=== PATIENT | male | born 1965 | race Hispanic/Latino ===

== ENCOUNTER 2018-07-29 17:57 | Emergency (ER) | payer SELFPAY ==
[2018-07-29] MEDS ORDERED: LIDOCAINE 1% 10 ML VIAL INJ ONE (18:04)
--- NOTE | 2018-07-29 18:13 | ED.PDOC ---
History of Present Illness - General Chief Complaint: Upper Extremity Injury Stated Complaint: left shoulder injury Time Seen by Provider: 07/29/18 18:09 Source: patient, RN notes reviewed, Vital Signs reviewed Additional Information: 52 YEAR OLD MALE FELL OFF A LADDER 3 FOOT OFF THE GROUND AND SUSTAINED INJURY TO THE LEFT SHOULDER HE DENIES ERIC OTHER INJURY NO LOC NO NECK PAIN NO CHEST OR ABDOMINAL PAIN NO TROUBLE BREATING PE IN MODERATE DISTRESS LEFT SHOULDER CONTOUR IS SAGGING NO NEUROVASCULAR DEFICIT NOTED - History of Present Illness Occurred: just prior to arrival Pain - Upper Extremity: moderate: Shoulder, left Method of Injury: fell Improving Factors: nothing Worsening Factors: movement Allergies/Adverse Reactions: Allergies NO KNOWN ALLERGY Allergy (Verified 07/29/18 18:01) Home Medications: Ambulatory Orders Acetamin W/Cod #3 Tab [Tylenol w/CODEINE #3] 1 ea PO Q6HR PRN #40 tab 07/29/18 Review of Systems - Review of Systems Constitutional: States: no symptoms reported EENTM: States: no symptoms reported Respiratory: States: no symptoms reported Cardiology: States: no symptoms reported Gastrointestinal/Abdominal: States: no symptoms reported Genitourinary: States: no symptoms reported Skin: States: no symptoms reported Neurological: States: no symptoms reported Endocrine: States: no symptoms reported Physical Exam - Physical Exam General Appearance: Alert, Obvious distress Eyes, Ears, Nose, Throat Exam: PERRL/EOMI, normal ENT inspection, TMs normal, pharynx normal Neck: non-tender, full range of motion, supple, normal inspection Cardiovascular/Respiratory: regular rate, rhythm, no M/R/G, normal peripheral pulses, no JVD Abdominal Exam: non-tender, no organomegaly Back Exam: normal inspection, no CVA tenderness Shoulder Exam: asymmetry, limited ROM Elbow/Forearm Exam: normal inspection, non-tender, no evidence of injury Wrist Exam: normal inspection, non-tender, no evidence of injury Hand Exam: normal inspection, non-tender, no evidence of injury Neuro/Tendon: normal sensation Mental Status: alert, oriented x 3 Progress - Results/Orders Results/Orders: 6.45 PT AWAKE ALERT VS STABLE MAY BE DISCHARGED NO DRIVING TODAY - EKG/XRAY/CT Xray Comments: anterior dislocation left shoulder Procedures - Joint Reduction left shoulder Reduction Attempts: 1 Pre-Procedure NV Exam: Yes Post Joint Reduction Film: joint reduced Progress: PATIENT WAS GIVEN FENTANYL 100 MICRO GMS AND VERSED 5 MG IV LEFT SHOULDER WAS REDUCED WITHOUT ANY DIFFICULTY PATIENT TOLERATED THE PROCEDURE WELL POST REDUCTION X RAY SATISFACTORY REDUCTION NOTED NO FRACTURE SEEN PT WAS PLACED ON SLING AND AMARA ADVISED TO LEAVE THE SHOUDLER IN THE SLING FOR 6 WEEKS FOLLOW UP WITH ORTHOPEDICS NEXT WEEK Departure - Departure Clinical Impression: Dislocation, shoulder, anterior Time of Disposition: 18:38 Disposition: Discharge to Home or Self Care Condition: Good Departure Forms: ED Discharge - Pt. Copy, Patient Portal Self Enrollment Diet: resume usual diet Home Medications: Ambulatory Orders Acetamin W/Cod #3 Tab [Tylenol w/CODEINE #3] 1 ea PO Q6HR PRN #40 tab 07/29/18
[2018-07-29 18:14] VITALS: TEMP 98.2
[2018-07-29] MEDS ORDERED: MIDAZOLAM INJ 5 MG/5 ML VIAL ONE (18:14)
[2018-07-29] MEDS ORDERED: fentaNYL CITRATE INJ 50 MCG/ML AMP ONE (18:15)
[2018-07-29] MEDS ORDERED: fentaNYL CITRATE INJ 50 MCG/ML AMP IV ONE (18:19)
[2018-07-29] MEDS ORDERED: MIDAZOLAM INJ 5 MG/5 ML VIAL IV ONE (18:19)
--- NOTE | 2018-07-29 18:34 | RAD ---
EXAM DESCRIPTION: Shoulder,Left 2 or More Views CLINICAL HISTORY: 52 years Male shoulder pain COMPARISON: None. TECHNIQUE: LEFT SHOULDER two view FINDINGS: There is inferior and medial displacement of the humerus with respect to the glenoid consistent with anterior dislocation. There appears to be some irregularity involving the superolateral margin of the humeral head suggesting Hill-Sachs deformity which may be acute or chronic in nature. Degenerative changes at the AC joint. Acromioclavicular joint appears maintained. IMPRESSION: Anterior shoulder dislocation with irregularity that may reflect Hill-Sachs deformity either acute or chronic in nature Electronically signed by: Sammi Mclean MD 07/29/2018 6:33 PM CDT
--- NOTE | 2018-07-29 18:49 | RAD ---
EXAM DESCRIPTION: Shoulder,Left 2 or More Views CLINICAL HISTORY: 52 years Male, post reduction COMPARISON: Radiographs from earlier same day FINDINGS: Single view of the left shoulder Interval glenohumeral reduction, now in anatomic alignment. Previously seen Hill-Sachs deformity of the humeral head is not visualized in this view. Electronically signed by: Trace Seay MD 07/29/2018 6:48 PM CDT
--- NOTE | 2018-07-29 19:18 | RAD ---
EXAM DESCRIPTION: Hand,Right 3 Views CLINICAL HISTORY: 52 years Male ,pain COMPARISON: None. TECHNIQUE: Three views of the right hand. FINDINGS: No acute fractures or dislocations are identified. No osseous destructive lesions. Mild degenerative changes. Small radiopaque foreign body adjacent to the ulnar aspect of the fifth digit middle phalanx head. Minimal radiopaque density in the soft tissues along the radial aspect of the proximal second phalanx. These may be chronic. Clinical correlation recommended. IMPRESSION: No acute fracture is identified. Small radiopaque foreign bodies which may be chronic. Clinical correlation recommended. Electronically signed by: Gagandeep Mclean MD 07/29/2018 7:17 PM CDT
[2018-07-29 19:35] VITALS: BP 123/93; O2SAT 96
== END 2018-07-29 19:20 | disposition home or self-care (01) ==
LOC: ER 17:57
DX: S43.015A Anterior dislocation of left humerus, initial encounter (principal); W11.XXXA Fall on and from ladder, initial encounter; Y92.9 Unspecified place or not applicable
CPT/HCPCS: 73030; 73130; J2250; J3010

== ENCOUNTER 2018-12-09 19:46 | Emergency (ER) | payer SELFPAY ==
[2018-12-09 20:06] VITALS: TEMP 98.1; O2SAT 98
--- NOTE | 2018-12-09 20:09 | ED.PDOC ---
History of Present Illness - General Chief Complaint: Upper Extremity Injury Stated Complaint: left shoulder dislocation Time Seen by Provider: 12/09/18 20:02 Source: patient Exam Limitations: no limitations - History of Present Illness Initial Comments: Yogi Doyle 53 y/o male stated that while going down his horse his boots got stuck on the saddle step and fell on his left arm with sharp pain on moving left shoulder after wards.Denies injuries else where. Occurred: this afternoon, other - 2 hours ago Pain - Upper Extremity: moderate: Shoulder, left Method of Injury: fell - off his horse Improving Factors: nothing, rest Worsening Factors: movement Associated Symptoms: pain Allergies/Adverse Reactions: Allergies NO KNOWN ALLERGY Allergy (Verified 07/29/18 18:01) Home Medications: Ambulatory Orders Acetamin W/Cod #3 Tab [Tylenol w/CODEINE #3] 1 ea PO Q6HR PRN #40 tab 07/29/18 Review of Systems - Review of Systems Constitutional: States: no symptoms reported EENTM: States: no symptoms reported Respiratory: States: no symptoms reported Musculoskeletal: States: see HPI All other Systems: Reviewed and Negative, No Change from Baseline Past Medical History (General) - Patient Medical History Hx Stroke: No Hx Asthma: No Hx Cardiac Disorders: No Hx Diabetes: Yes Surgical History: no surgical history - Social History Hx Tobacco Use: Yes Hx Alcohol Use: No Hx Substance Use: No Hx Physical Abuse: No Hx Emotional Abuse: No Family Medical History - Family History Mother Family History: Unknown Physical Exam - Physical Exam General Appearance: Alert, Anxious, No apparent distress Eyes, Ears, Nose, Throat Exam: normal ENT inspection Neck: non-tender, full range of motion, supple Cardiovascular/Respiratory: regular rate, rhythm, no M/R/G, normal peripheral pulses, no JVD Abdominal Exam: non-tender Back Exam: no CVA tenderness, no vertebral tenderness Shoulder Exam: asymmetry, deformity - loss of deltoid muscle fullness left shoulder, limited ROM - left shoulder, pain, soft tissue tenderness Elbow/Forearm Exam: normal inspection, non-tender, no evidence of injury, normal ROM Wrist Exam: normal inspection, non-tender, normal ROM Hand Exam: normal inspection, non-tender, no evidence of injury, normal ROM Neuro/Tendon: normal sensation, normal motor functions, normal tendon functions, no evidence tendon injury Mental Status: alert, oriented x 3 Skin Exam: normal color, warm/dry Progress - Progress Progress: 12/09/18 21:30 Vital Signs - 8 hr 12/09/18 19:59 Temperature 98.1 F Pulse Rate [ 61 left] Respiratory 18 Rate Blood Pressure 167/105 [left] O2 Sat by Pulse 98 Oximetry - EKG/XRAY/CT XRAY: left shoulder-dislocation Procedures - Joint Reduction shoulder Conscious Sedation: Yes - Propofol-150 mg Reduction Attempts: 1 - left shoulder dislocation Pre-Procedure NV Exam: Yes Post Joint Reduction Film: consent signed Departure - Departure Clinical Impression: Fall from horse Qualifiers: Encounter type: initial encounter Qualified Code(s): V80.010A - Animal-rider injured by fall from or being thrown from horse in noncollision accident, initial encounter Left shoulder pain Qualifiers: Chronicity: acute Qualified Code(s): M25.512 - Pain in left shoulder Dislocation of left shoulder joint Qualifiers: Encounter type: initial encounter Qualified Code(s): S43.005A - Unspecified dislocation of left shoulder joint, initial encounter Time of Disposition: 21:50 Disposition: Discharge to Home or Self Care Condition: Fair Departure Forms: ED Discharge - Pt. Copy, Patient Portal Self Enrollment Instructions: Shoulder Dislocation (DC), Shoulder Dislocation Home Medications: Ambulatory Orders Acetamin W/Cod #3 Tab [Tylenol w/CODEINE #3] 1 ea PO Q6HR PRN #40 tab 07/29/18 Additional Instructions: No horseback riding for 5 days;Arm sling for 5 days;Follow up with primary 13 Dec 2018 for recheck
[2018-12-09] MEDS ORDERED: fentaNYL CITRATE INJ 50 MCG/ML AMP IV ONE (20:34)
--- NOTE | 2018-12-09 20:36 | RAD ---
EXAM DESCRIPTION: Shoulder,Left 2 or More Views CLINICAL HISTORY: left shoulder pain COMPARISON: None FINDINGS: 2 view(s) submitted. There is inferior dislocation of the left humerus head. No definite fracture. However there is irregularity of the glenoid and of the acromion that could either be degenerative or could be fracture. Attention is recommended at follow-up. IMPRESSION: Left shoulder dislocation. Electronically signed by: David Silva 12/09/2018 8:33 PM [facility]
[2018-12-09] MEDS ORDERED: PROPOFOL 200 MG/20 ML VIAL IV ONE ×2 (21:07→21:11)
[2018-12-09] MEDS ORDERED: SODIUM CHLORIDE 0.9% 1000ML 1,000 ML ONE (21:07)
[2018-12-09] MEDS ORDERED: SODIUM CHLORIDE 0.9% 1000ML 1,000 ML IVS ONE (21:11)
--- NOTE | 2018-12-09 21:39 | RAD ---
EXAM DESCRIPTION: Shoulder,Left 1 View CLINICAL HISTORY: verification of shoulder realighnment COMPARISON: 12/09/2018 2004 hours FINDINGS: One view(s) submitted. No fracture or dislocation is identified. Bone marrow attenuation is unremarkable. No radiopaque foreign body is identified. IMPRESSION: Successful relocation. No definite fracture. Electronically signed by: David Silva 12/09/2018 9:35 PM [facility]
[2018-12-09] MEDS ORDERED: ACETAMINOPHEN W/COD #3 TAB (ER Disp) PO ONE (21:51)
[2018-12-09 22:21] VITALS: BP 140/115
== END 2018-12-09 21:15 | disposition home or self-care (01) ==
LOC: ER 19:46
DX: S43.005A Unspecified dislocation of left shoulder joint, initial encounter (principal); E11.9 Type 2 diabetes mellitus without complications; V80.010A Animal-rider injured by fall from or being thrown from horse in noncollision accident, initial encounter; Y93.51 Activity, roller skating (inline) and skateboarding; Z87.891 Personal history of nicotine dependence; Y92.9 Unspecified place or not applicable
CPT/HCPCS: 73020; 73030; 94770; J3010; J3490; J7030

== ENCOUNTER 2019-07-24 19:12 | Emergency (ER) | payer SELFPAY ==
[2019-07-24] MEDS ORDERED: ONDANSETRON INJ 4 MG/2 ML VIAL IV ONE (20:07)
[2019-07-24] MEDS: HYDROmorphone HCL INJ 2 MG/ML VIAL IV ONE ×2 (20:15→20:16)
--- NOTE | 2019-07-24 20:52 | RAD ---
EXAM DESCRIPTION: Shoulder,Left 2 or More Views CLINICAL HISTORY: 53 years Male, trauma COMPARISON: December 09, 2018 FINDINGS: Left shoulder 2 views Anteroinferior dislocation of the humeral head relative to the glenoid. No discrete fracture seen. Impression: Glenohumeral dislocation. Electronically signed by: Trace Seay MD 07/24/2019 8:51 PM CDT
[2019-07-24] MEDS ORDERED: HYDROmorphone HCL INJ 2 MG/ML VIAL IV ONE (21:01)
[2019-07-24] MEDS ORDERED: PROPOFOL 200 MG/20 ML VIAL IV ONE ×2 (21:17→23:25)
[2019-07-24] MEDS ORDERED: SODIUM CHLORIDE 0.9% 1000ML 1,000 ML ONE (21:22)
[2019-07-24] MEDS ORDERED: MORPHINE SULFATE INJ 10 MG/ML VIAL ONE (21:49)
--- NOTE | 2019-07-24 23:10 | ED.PDOC ---
History of Present Illness - General Chief Complaint: Upper Extremity Injury Stated Complaint: dislocated left shoulder Time Seen by Provider: 07/24/19 20:06 Source: patient Additional Information: Yogi Doyle is a 53-year-old male who presents to the ED with chief complaint of left shoulder injury. Patient was lifting a heavy object with a friend and the object slipped and patient fell to the ground and landed on his left shoulder. patient has no injuries other than left shoulder pain. He indicates that he has dislocated that shoulder twice before. patient specifically denies head injury and neck pain. There are no other complaints. - History of Present Illness Allergies/Adverse Reactions: Allergies NO KNOWN ALLERGY Allergy (Verified 07/29/18 18:01) Home Medications: Ambulatory Orders Acetamin W/Cod #3 Tab [Tylenol w/CODEINE #3] 1 ea PO Q6HR PRN #40 tab 07/29/18 Acetaminophen W/ Codeine [Tylenol W/ CODEINE #3] 1 ea PO Q6H PRN #20 07/25/19 Review of Systems - Review of Systems Constitutional: States: no symptoms reported EENTM: States: no symptoms reported Respiratory: States: no symptoms reported. Denies: cough, short of breath Cardiology: States: no symptoms reported. Denies: chest pain, palpitations Gastrointestinal/Abdominal: States: no symptoms reported. Denies: abdominal pain Musculoskeletal: States: see HPI. Denies: back pain, neck pain Neurological: States: no symptoms reported All other Systems: Reviewed and Negative Past Medical History (General) - Patient Medical History Hx Seizures: No Hx Stroke: No Hx Dementia: No Hx Asthma: No Hx of COPD: No Hx Cardiac Disorders: No Hx Congestive Heart Failure: No Hx Pacemaker: No Hx Hypertension: No Hx Thyroid Disease: No Hx Diabetes: No Hx Gastroesophageal Reflux: No Hx Renal Disease: No Hx Cancer: No Hx of HIV: No Hx MRSA: No - Vaccination History Hx Tetanus, Diphtheria Vaccination: No Hx Influenza Vaccination: No Hx Pneumococcal Vaccination: No - Social History Hx Tobacco Use: Yes Hx Alcohol Use: Yes Hx Substance Use: No Hx Depression: No Hx Physical Abuse: No Hx Emotional Abuse: No - Triage Comment ED Triage Comment: Patient was moving couch and dislocated his left shoulder. Patient has history of left shoulder dislocating Family Medical History - Family History Mother Family History: Unknown Physical Exam - Physical Exam General Appearance: Alert, Anxious, Obvious distress, Well Developed, Well Nourished Head Injury: no evidence of injury Eye Exam: bilateral normal ENT Exam: no evidence of ENT injury Neck Exam: non-tender, full range of motion, normal inspection Cardiovascular/Respiratory: regular rate, rhythm, no M/R/G Gastrointestinal/Abdominal: normal bowel sounds, non tender, soft Back Exam: normal inspection, no vertebral tenderness Extremity Exam: other - left shoulder held in abduction. Patient efuses to permit range of motion. 2+ radial pulse. Normal sensation distally and over the lateral deltoid. Remainder of the arm is nontender. Neurologic: no motor/sensory deficits, alert Progress - Progress Progress: Differential diagnosis: Fracture, sprain, contusion, dislocation. 07/24/19 23:12 Approximately one hour ago procedural sedation attempted to reduce patient's shoulder. Patient received propofol and morphine and right after administration another patient in the ED was found to have a head bleed and needed emergent management. Sedation was aborted and patient was watched and he woke up shortly after. Will resume procedural sedation at earliest available opportunity. 07/25/19 00:30 EXAM DESCRIPTION: Shoulder,Left 1 View CLINICAL HISTORY: 53 years Male S/P patrice nelson reduction COMPARISON: 07/24/2019 8:17 PM. TECHNIQUE: LEFT SHOULDER single view FINDINGS: Interval relocation of the humeral head with respect to the glenoid. There is narrowing of the acromiohumeral joint space consistent with shoulder impingement. Deformity of the lateral margin of the head of the humerus which appears similar to the previous study suggesting a chronic health sacs lesion. Acromioclavicular joint appears maintained. IMPRESSION: Interval relocation of the shoulder. Suspect chronic Hill-Sachs deformity Shoulder impingement Electronically signed by: Sammi Mclean MD 07/25/2019 12:14 AM Patient is now fully awake alert and oriented. Successful reduction on second attempt. Patient is placed in a shoulder immobilizer and I will refer her to orthopedics for outpatient reevaluation. Vital signs stable, patient NAD and looks clinically well and is safe for discharge with outpatient follow-up. Follow-up instructions, discharge instructions and return to ED precautions discussed with patient, Patient voices understanding and willingness to comply with instructions. All laboratory and radiographic results have been discussed with the patient, and all questions answered.. Patient happy with plan. Procedures - Joint Reduction left shoulder Conscious Sedation: Yes Reduction Attempts: 2 Pre-Procedure NV Exam: Yes Post Joint Reduction Film: no fracture seen Departure - Departure Clinical Impression: Dislocation, shoulder, anterior Qualifiers: Encounter type: initial encounter Time of Disposition: 00:32 Disposition: Discharge to Home or Self Care Condition: Good Departure Forms: ED Discharge - Pt. Copy, Patient Portal Self Enrollment Instructions: DI for Arm Pain, Shoulder Dislocation Activity: no pushing/pulling with affected limb Referrals: Ruddy Harden MD [Active Staff] - 1 Week Prescriptions: Acetaminophen W/ Codeine [Tylenol W/ CODEINE #3] 1 ea PO Q6H PRN #20 PRN Reason: Pain Home Medications: Ambulatory Orders Acetamin W/Cod #3 Tab [Tylenol w/CODEINE #3] 1 ea PO Q6HR PRN #40 tab 07/29/18 Acetaminophen W/ Codeine [Tylenol W/ CODEINE #3] 1 ea PO Q6H PRN #20 07/25/19
[2019-07-24] MEDS ORDERED: KETAMINE HCL 100 MG/ML VIAL ONE (23:55)
--- NOTE | 2019-07-25 00:16 | RAD ---
EXAM DESCRIPTION: Shoulder,Left 1 View CLINICAL HISTORY: 53 years Male S/P shoulder reduction COMPARISON: 07/24/2019 8:17 PM. TECHNIQUE: LEFT SHOULDER single view FINDINGS: Interval relocation of the humeral head with respect to the glenoid. There is narrowing of the acromiohumeral joint space consistent with shoulder impingement. Deformity of the lateral margin of the head of the humerus which appears similar to the previous study suggesting a chronic health sacs lesion. Acromioclavicular joint appears maintained. IMPRESSION: Interval relocation of the shoulder. Suspect chronic Hill-Sachs deformity Shoulder impingement Electronically signed by: Sammi Mclean MD 07/25/2019 12:14 AM CDT
[2019-07-25 00:51] VITALS: BP 165/102; TEMP 98.9; O2SAT 96
== END 2019-07-25 01:01 | disposition home or self-care (01) ==
LOC: ER 19:12
DX: M24.412 Recurrent dislocation, left shoulder (principal); Z87.891 Personal history of nicotine dependence
CPT/HCPCS: 73020; 73030; J1170; J2270; J2405; J3490; J7030

== ENCOUNTER 2019-12-12 14:44 | Emergency (ER) | payer SELFPAY ==
[2019-12-12] MEDS: HYDROmorphone HCL INJ 2 MG/ML VIAL IV ONE (14:59)
[2019-12-12] MEDS: ONDANSETRON ODT 8 MG TAB SL ONE (15:01)
[2019-12-12] MEDS ORDERED: ETOMIDATE INJECTION 2 MG/ML 20ML VIAL IV ONE (15:06)
[2019-12-12] MEDS: ETOMIDATE INJECTION 2 MG/ML 20ML VIAL IV ONE (15:20)
--- NOTE | 2019-12-12 15:20 | RAD ---
EXAM DESCRIPTION: Shoulder,Left 2 or More Views CLINICAL HISTORY: 54 years Male, suspected recurrent shoulder dislocation COMPARISON: 07/25/2019 Findings: 3 views/radiographs Recurrent anterior/inferior glenohumeral dislocation. Moderate acromioclavicular osteoarthritis. No acute fracture identified. Visualized chest is clear. IMPRESSION: Glenohumeral dislocation. Electronically signed by: Devang Rose MD 12/12/2019 3:18 PM [facility]
--- NOTE | 2019-12-12 15:34 | RAD ---
EXAM DESCRIPTION: Shoulder,Left 2 or More Views CLINICAL HISTORY: 54 years Male, post reduction COMPARISON: Left shoulder series obtained earlier same day FINDINGS: Near anatomic postreduction alignment of the left glenohumeral joint without fracture or other complication. Mild degenerative changes in the left AC joint without significant undersurface spurring. IMPRESSION: Near anatomic postreduction alignment of the left glenohumeral joint without apparent complication. Electronically signed by: Mario Clancy MD 12/12/2019 3:33 PM [facility]
--- NOTE | 2019-12-12 15:42 | ED.PDOC ---
History of Present Illness - General Chief Complaint: Upper Extremity Injury Stated Complaint: dislocated shoulder Time Seen by Provider: 12/12/19 14:50 Source: patient Exam Limitations: no limitations - History of Present Illness Initial Comments: The patient is a 54-year-old male presented emergency room secondary to a with shoulder dislocation. He reached up to do something and it slipped out. He reports this is better with time. He is neurovascularly intact. It occurred about 30 minutes prior to arrival. He has not had anything to eat today. His last oral intake was a couple of beers found that he was wanting for 1/2 hours ago. No fever. No injury. No laceration. Deformity is palpable. Timing/Duration: momentarily, 1/2 hour Severity: moderate Improving Factors: immobilization Worsening Factors: movement Associated Symptoms: denies symptoms Allergies/Adverse Reactions: Allergies NO KNOWN ALLERGY Allergy (Verified 07/29/18 18:01) Home Medications: Ambulatory Orders NK 12/12/19 Review of Systems - Review of Systems Constitutional: States: no symptoms reported EENTM: States: no symptoms reported Respiratory: States: no symptoms reported Cardiology: States: no symptoms reported Gastrointestinal/Abdominal: States: no symptoms reported Genitourinary: States: no symptoms reported Musculoskeletal: States: see HPI Skin: States: no symptoms reported Neurological: States: no symptoms reported Endocrine: States: no symptoms reported All other Systems: No Change from Baseline Past Medical History (General) - Patient Medical History Hx Seizures: No Hx Stroke: No Hx Dementia: No Hx Asthma: No Hx of COPD: No Hx Cardiac Disorders: No Hx Congestive Heart Failure: No Hx Pacemaker: No Hx Hypertension: No Hx Thyroid Disease: No Hx Diabetes: No Hx Gastroesophageal Reflux: No Hx Renal Disease: No Hx Cancer: No Hx of HIV: No Hx MRSA: No - Vaccination History Hx Tetanus, Diphtheria Vaccination: No Hx Influenza Vaccination: No Hx Pneumococcal Vaccination: No - Social History Hx Tobacco Use: Yes Hx Alcohol Use: Yes Hx Substance Use: No Hx Depression: No Hx Physical Abuse: No Hx Emotional Abuse: No Family Medical History - Family History Mother Family History: Unknown Physical Exam - Physical Exam General Appearance: Alert, No apparent distress Eye Exam: bilateral normal Ears, Nose, Throat: hearing grossly normal, normal pharynx Neck: full range of motion, supple Respiratory: lungs clear, normal breath sounds, no respiratory distress, no accessory muscle use Cardiovascular/Chest: normal peripheral pulses, no edema, other - Regular rate Peripheral Pulses: radial,right: 2+, radial,left: 2+ Gastrointestinal/Abdominal: non tender, soft Rectal Exam: deferred Back Exam: no CVA tenderness, no vertebral tenderness Extremity: no pedal edema, normal capillary refill, other - See history of present illness 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 The shoulder was reduced without difficulty under moderate sedation. Postreduction films confirmed. The patient can use Motrin as needed. He has been placed in a sling. He should keep follow-up with orthopedics. Keep routine follow-up with primary care doctor otherwise. ER warnings are given. Procedure note: Moderate sedation: Risks and benefits were explained and patient agreed to proceed. Respiratory and nursing were present for monitoring. Pulse oximetry, end-tidal CO2's and blood pressures were monitored throughout. The patient received 12 mg of etomidate as moderate sedation. Reduction was done without difficulty. Postreduction films confirmed placement. He is neurovascularly intact after. shayla [email or web address] [id number] - Results/Orders Results/Orders: Initial x-ray shows inferior anterior dislocation of the left shoulder. Postreduction film shows near anatomic alignment. No evidence of any fracture. 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 Departure - Departure Clinical Impression: Recurrent shoulder dislocation Qualifiers: Laterality: left Qualified Code(s): M24.412 - Recurrent dislocation, left shoulder Disposition: Discharge to Home or Self Care Condition: Fair Departure Forms: ED Discharge - Pt. Copy, Patient Portal Self Enrollment Instructions: Shoulder Dislocation (DC) Diet: regular diet Activity: no pushing/pulling with affected limb Home Medications: Ambulatory Orders NK 12/12/19 Additional Instructions: The patient is a 54-year-old male presenting secondary to a recurrent left shoulder dislocation. The shoulder was reduced without difficulty under moderate sedation. Postreduction films confirmed. The patient can use Motrin as needed. He has been placed in a sling. He should keep follow-up with orthopedics. Keep routine follow-up with primary care doctor otherwise. ER warnings are given.
[2019-12-12 15:43] VITALS: TEMP 97.8
[2019-12-12 16:22] VITALS: BP 156/87; O2SAT 93
== END 2019-12-12 16:09 | disposition home or self-care (01) ==
LOC: ER 14:44
DX: M24.412 Recurrent dislocation, left shoulder (principal); F17.200 Nicotine dependence, unspecified, uncomplicated; X50.9XXA Other and unspecified overexertion or strenuous movements or postures, initial encounter; Y92.9 Unspecified place or not applicable
CPT/HCPCS: 73030; 94770; J1170

== ENCOUNTER 2020-01-07 07:56 | Emergency (ER) | payer SELFPAY ==
[2020-01-07] MEDS ORDERED: PROPOFOL 200 MG/20 ML VIAL IV ONE (07:57)
[2020-01-07] MEDS ORDERED: LIDOCAINE 1% 10 ML VIAL INJ ONE (07:57)
[2020-01-07] MEDS ORDERED: SODIUM CHLORIDE 0.9% (FLUSH) 10 ML SYG IV PRN (08:10)
[2020-01-07] MEDS ORDERED: HYDROmorphone HCL INJ 2 MG/ML VIAL IV ONE ×4 (08:10→11:07)
[2020-01-07] MEDS ORDERED: SODIUM CHLORIDE 0.9% 1000ML 1,000 ML IVS ONE (08:10)
--- NOTE | 2020-01-07 08:14 | ED.PDOC ---
History of Present Illness - General Time Seen by Provider: 01/07/20 08:09 Source: patient - History of Present Illness Initial Comments: 54 yo male with PMH of HTN, DM2 who presents with cc of Left shoulder pain. 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 Reports also deformity and tingling sensations down the left arm and into the left hand. 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 Pt reports hx of L shoulder dislocation x4 in the past. Last was on 12/12/2019 - seen here in the ED and reduced by Dr. Freeman. Allergies/Adverse Reactions: Allergies NO KNOWN ALLERGY Allergy (Verified 01/07/20 08:20) Home Medications: Ambulatory Orders Acetaminophen W/ Codeine [Tylenol W/ CODEINE #3] 1 ea PO Q6H PRN 5 Days #10 01/07/20 Acetaminophen W/ Codeine [Tylenol W/ CODEINE #3] 1 ea PO Q6H PRN 5 Days #10 01/07/20 Review of Systems - Review of Systems Review of Systems: 01/07/20 08:14 as per HPI All other Systems: Reviewed and Negative Past Medical History (General) - Patient Medical History Hx Seizures: No Hx Stroke: No Hx Dementia: No Hx Asthma: No Hx of COPD: No Hx Cardiac Disorders: No Hx Congestive Heart Failure: No Hx Pacemaker: No Hx Hypertension: No Hx Thyroid Disease: No Hx Diabetes: No Hx Gastroesophageal Reflux: No Hx Renal Disease: No Hx Cancer: No Hx of HIV: No Hx MRSA: No - Vaccination History Hx Tetanus, Diphtheria Vaccination: No Hx Influenza Vaccination: No Hx Pneumococcal Vaccination: No - Social History Hx Tobacco Use: Yes Hx Alcohol Use: Yes Hx Substance Use: No Hx Depression: No Hx Physical Abuse: No Hx Emotional Abuse: No Family Medical History - Family History Mother Family History: Unknown Physical Exam - Physical Exam General Appearance: Alert, Anxious, No apparent distress Eyes, Ears, Nose, Throat Exam: PERRL/EOMI, normal ENT inspection Neck: non-tender, full range of motion, supple, normal inspection Cardiovascular/Respiratory: regular rate, rhythm, no M/R/G, normal peripheral pulses, no JVD, normal breath sounds, no respiratory distress Abdominal Exam: non-tender, no organomegaly Back Exam: normal inspection, no CVA tenderness, no vertebral tenderness Shoulder Exam: bone tenderness - throughout left shoulder, moderate, guarding, deformity - noted to left shoulder region, appears dislocated, limited ROM - markedly limited to Left shoulder region all directions due to pain Elbow/Forearm Exam: normal inspection, non-tender, no evidence of injury, normal ROM Wrist Exam: normal inspection, non-tender, no evidence of injury, normal ROM Hand Exam: normal inspection, non-tender, no evidence of injury, normal ROM Neuro/Tendon: normal motor functions Mental Status: alert, oriented x 3 Skin Exam: normal color, warm/dry Progress - Progress Progress: 01/07/20 08:16 Acute Left shoulder pain -suspect anterior dislocation. Consider also posterior dislocation, fracture, strain/sprain, rotator cuff injury, other -stat L shoulder XR, place PIV, Dilaudid 1 mg IV 01/07/20 11:08 -Initially attempted shoulder reduction with IV moderate sedation with Versed (total 7 mg) and Dilaudid (total 3 mg). Attempted traction + external rotation + abduction method and then traction-countertraction method with bedsheets without success. -Was just able to contact Dr. Harden (ortho) who is unable to get to the ED currently. He is recommending heavy sedation with propofol and attempting reduction with traction + abduction + internal rotation under heavy sedation with propofol. -TRANSFORMATION COACH (Stephan) consulted who is coming in to assist with heavy sedation in ED for shoulder reduction. 01/07/20 12:04 -Was able to easily reduce the shoulder under deep sedation and TRANSFORMATION COACH assistance - reduced easily with traction, abduction, slight interal rotation. Post- reduction films confirmed good reduction. Placed in sling and will need close outpatient f/u with ortho in next 1-2 weeks. -dc home in good condition, return warnings discussed. Vargas Barton MD Billing #[id number] Procedures - Joint Reduction left shoulder Conscious Sedation: Yes - On 2nd attempt, deep sedation with propofol used in presence of TRANSFORMATION COACH. Reduction Attempts: 2 Pre-Procedure NV Exam: Yes Post Joint Reduction Film: joint reduced - On 2nd attempt with deep sedation and TRANSFORMATION COACH. Reduced easily with traction, abduction, interal rotation. Sling applied immediately Departure - Departure Clinical Impression: Dislocation of left shoulder joint Time of Disposition: 11:58 Disposition: Discharge to Home or Self Care Condition: Fair Instructions: Shoulder Dislocation (DC) Diet: resume usual diet Activity: other - Left arm to remain in shoulder sling until cleared by ortho Referrals: Ruddy Harden MD [Active Staff] - 1-2 Weeks Prescriptions: Acetaminophen W/ Codeine [Tylenol W/ CODEINE #3] 1 ea PO Q6H PRN 5 Days #10 PRN Reason: Pain Acetaminophen W/ Codeine [Tylenol W/ CODEINE #3] 1 ea PO Q6H PRN 5 Days #10 PRN Reason: Pain Home Medications: Ambulatory Orders Acetaminophen W/ Codeine [Tylenol W/ CODEINE #3] 1 ea PO Q6H PRN 5 Days #10 01/07/20 Acetaminophen W/ Codeine [Tylenol W/ CODEINE #3] 1 ea PO Q6H PRN 5 Days #10 01/07/20 Additional Instructions: Continue taking ibuprofen 600 mg every 6 hours and Tylenol 650 mg every 6 hours as needed for pain. Keep the Left arm sling on and do not use the left arm until cleared by ortho. Follow up with the orthopedic surgery clinic (Dr. Harden) in next 1-2 weeks. Return if the shoulder becomes dislocated again or any other issues. I strongly advise you quit smoking as this will greatly affect your chances of a successful shoulder surgery if this is recommended by Dr. Harden.
[2020-01-07 08:22] VITALS: TEMP 97.3
[2020-01-07] MEDS ORDERED: MIDAZOLAM INJ 5 MG/5 ML VIAL ONE (08:51)
[2020-01-07] MEDS ORDERED: MIDAZOLAM INJ 5 MG/5 ML VIAL IV ONE ×2 (08:57→09:14)
--- NOTE | 2020-01-07 08:59 | RAD ---
EXAM DESCRIPTION: Shoulder,Left 2 or More Views CLINICAL HISTORY: 54 years Male acute left shoulder pain, suspected dislocation COMPARISON: Left shoulder dated 12/12/2019 TECHNIQUE: AP views in internal and external rotation of the left shoulder are obtained. FINDINGS: OSSEOUS: There is anteroinferior complete dislocation of the left humeral head relative to the glenoid with suspected Hill-Sachs deformity. The joint spaces are preserved. There is exuberant subacromial enthesopathy. There is no evidence of marginal erosive changes to suggest an inflammatory arthritis. SOFT TISSUE: There is no significant soft tissue swelling or mass. No evidence of significant soft tissue calcifications. No radiopaque foreign bodies. IMPRESSION: Anteroinferior dislocation of the left humeral head relative to the glenoid with Hill-Sachs deformity. Remainder of findings as described above. Electronically signed by: Pattie Lennon MD 01/07/2020 8:57 AM CDT
[2020-01-07] MEDS ORDERED: fentaNYL CITRATE INJ 50 MCG/ML 2 ML AMP ONE (09:31)
[2020-01-07] MEDS ORDERED: fentaNYL CITRATE INJ 50 MCG/ML 2 ML AMP IV ONE (09:49)
[2020-01-07] MEDS ORDERED: cloNIDine HCL 0.1 MG TAB PO ONE (12:02)
--- NOTE | 2020-01-07 12:18 | RAD ---
PROCEDURE: XR Left Shoulder, 1 View CLINICAL INDICATION: The patient is 54 years old and is Male; shoulder dislocated MAIN TECHNIQUE: One view of the left shoulder. COMPARISON: No relevant prior studies available. FINDINGS: BONES/JOINTS: Successful reduction of anteroinferior dislocation. Small Hill-Sachs deformity noted. No bony Bankart lesion identified. Mild AC joint arthrosis. SOFT TISSUES: No radiopaque foreign body. No significant soft tissue swelling noted. IMPRESSION: 1. Successful reduction of anteroinferior dislocation. This has been recurrent indicative of labral pathology. Consider magnetic resonance imaging evaluation and orthopedic upper extremity consultation. 2. Small Hill-Sachs deformity noted. 3. No bony Bankart lesion identified. Electronically signed by: Hugo Kearns MD 01/07/2020 12:17 PM CDT
[2020-01-07 13:39] VITALS: BP 159/93; O2SAT 100
== END 2020-01-07 12:52 | disposition home or self-care (01) ==
LOC: ER 07:56
DX: M24.412 Recurrent dislocation, left shoulder (principal); I10 Essential (primary) hypertension; E11.9 Type 2 diabetes mellitus without complications; Z87.891 Personal history of nicotine dependence
CPT/HCPCS: 73020; 73030; 94770; J1170; J2250; J3010; J3490; J7030

== ENCOUNTER 2020-01-16 17:51 | Emergency (ER) | payer SELFPAY ==
[2020-01-16] MEDS ORDERED: MORPHINE SULFATE INJ 10 MG/ML VIAL IM ONE (17:56)
[2020-01-16] MEDS ORDERED: PROPOFOL 200 MG/20 ML VIAL IV ONE (18:00)
[2020-01-16] MEDS ORDERED: KETAMINE HCL 100 MG/ML VIAL ONE (18:00)
[2020-01-16] MEDS ORDERED: MORPHINE SULFATE INJ 10 MG/ML VIAL IV ONE ×2 (18:18→18:20)
--- NOTE | 2020-01-16 18:24 | ED.PDOC ---
History of Present Illness - General Chief Complaint: Upper Extremity Injury Stated Complaint: Poss L shoulder dislocation Time Seen by Provider: 01/16/20 17:55 Source: patient Exam Limitations: no limitations - History of Present Illness Initial Comments: L SHOULDER PAIN. DISLOCATED PT THINKS. HE SLIPPED INTO A MUD HOLE AND CAUGHT HIMSELF, AT WHICH TIME THE PAIN ENSUED. H/O L SHOULDER DISLOCATION X 4 THIS PAST YEAR WITH MOST RECENT ONE 10 D AGO. PER NURSE AND CHART REVIEW, KETAMINE AND VERSED DID NOT WORK. ETOMIDATE WORKED BEST FOR CONSCIOUS SEDATION VIA TRACTION, ABDUCTION AND INTERNAL ROTATION. WAS REFERRED TO ORTHO FOR SURGERY BUT CANNOT AFFORD IT. Occurred: just prior to arrival Pain - Upper Extremity: severe: Shoulder, left Method of Injury: fell Improving Factors: immobilization Worsening Factors: movement Allergies/Adverse Reactions: Allergies NO KNOWN ALLERGY Allergy (Verified 01/16/20 18:21) Home Medications: Ambulatory Orders Acetaminophen W/ Codeine [Tylenol W/ CODEINE #3] 1 ea PO Q6H PRN 5 Days #10 01/07/20 Acetaminophen W/ Codeine [Tylenol W/ CODEINE #3] 1 ea PO Q6H PRN 5 Days #10 01/07/20 Review of Systems - Review of Systems Constitutional: States: no symptoms reported EENTM: States: no symptoms reported Respiratory: States: no symptoms reported Cardiology: States: no symptoms reported Gastrointestinal/Abdominal: States: no symptoms reported Genitourinary: States: no symptoms reported Musculoskeletal: States: see HPI, joint pain. Denies: back pain, neck pain Skin: Denies: lesions, rash Neurological: States: see HPI. Denies: headache Endocrine: Denies: intolerance to cold, intolerance to heat Hematologic/Lymphatic: Denies: easy bleeding, easy bruising All other Systems: Reviewed and Negative Past Medical History (General) - Patient Medical History Hx Seizures: No Hx Stroke: No Hx Dementia: No Hx Asthma: No Hx of COPD: No Hx Cardiac Disorders: No Hx Congestive Heart Failure: No Hx Pacemaker: No Hx Hypertension: Yes Hx Thyroid Disease: No Hx Diabetes: Yes Hx Gastroesophageal Reflux: No Hx Renal Disease: No Hx Cancer: No Hx of HIV: No Hx MRSA: No - Vaccination History Hx Tetanus, Diphtheria Vaccination: No Hx Influenza Vaccination: No Hx Pneumococcal Vaccination: No Immunizations Up to Date: No - Social History Hx Tobacco Use: Yes Hx Alcohol Use: Yes Hx Substance Use: No Hx Substance Use Treatment: No Hx Depression: No Hx Physical Abuse: No Hx Emotional Abuse: No - Female History Patient is a Female of Child Bearing Age (10 -59 yrs old): No Patient : No Family Medical History - Family History Mother Family History: Unknown Living Status: Unknown Physical Exam - Physical Exam General Appearance: Alert, Obvious distress Eyes, Ears, Nose, Throat Exam: PERRL/EOMI, pharynx normal Neck: non-tender, full range of motion Cardiovascular/Respiratory: regular rate, rhythm, no M/R/G Abdominal Exam: non-tender Back Exam: normal inspection Shoulder Exam: bone tenderness, deformity, limited ROM - LEFT SHOULDER APPEARS ANTERIORLY DISLOCATED., pain, soft tissue tenderness Elbow/Forearm Exam: non-tender, no evidence of injury Wrist Exam: normal inspection, non-tender, no evidence of injury, normal ROM Hand Exam: normal inspection, non-tender, no evidence of injury, normal ROM Neuro/Tendon: normal sensation, normal tendon functions, responds to pain, other - NEUROVASCULARLY IN TACT. HAND WARM AND WELL-PERFUSED. Mental Status: alert, oriented x 3 Skin Exam: normal color, warm/dry Progress - Results/Orders Results/Orders: INITIAL XRAY SHOWS ANTERIOR SHOULDER DISLOCATION. Procedure note: Moderate sedation: Risks and benefits were explained and patient agreed to proceed. Etomidate 12 mg given x 2. No sedation was achieved, thus DRY CHARGE PROCESS ATTENDANT consulted. DRY CHARGE PROCESS ATTENDANT and Respiratory were present for monitoring. Pulse oximetry, end-tidal CO2's and blood pressures were monitored throughout. The patient received Propofol 150 and Ketamine 30 for DRY CHARGE PROCESS ATTENDANT anesthesia. Reduction was successful with distal traction, abduction, and external rotation. Postreduction films confirmed placement in glenohumeral joint. He is neurovascularly intact before and after. Sling applied. BP DECREASED TO 155/112 AFTER ANESTHETICS APPLIED. F/U WITH PCP RE BP. PT AND SIGNIFICANT OTHER STATE BP NL AT BASELINE WHEN NOT IN PAIN. Departure - Departure Clinical Impression: Dislocation, shoulder, anterior Qualifiers: Encounter type: initial encounter Laterality: left Qualified Code(s): S43.015A - Anterior dislocation of left humerus, initial encounter Left shoulder pain Qualifiers: Chronicity: acute Qualified Code(s): M25.512 - Pain in left shoulder Recurrent shoulder dislocation Qualifiers: Laterality: left Qualified Code(s): M24.412 - Recurrent dislocation, left shoulder Disposition: Discharge to Home or Self Care Condition: Good Departure Forms: ED Discharge - Pt. Copy, Patient Portal Self Enrollment Instructions: Shoulder Dislocation (DC) Diet: resume usual diet Activity: other - Please leave arm in sling for 1 week. Home Medications: Ambulatory Orders Acetaminophen W/ Codeine [Tylenol W/ CODEINE #3] 1 ea PO Q6H PRN 5 Days #10 01/07/20 Acetaminophen W/ Codeine [Tylenol W/ CODEINE #3] 1 ea PO Q6H PRN 5 Days #10 01/07/20 Additional Instructions: Please call Dr. Harden's office, orthopedic surgery, to make a clinic appointment. The shoulder will continue to dislocate until you are able to have orthopedic care.
--- NOTE | 2020-01-16 18:25 | RAD ---
3 VIEWS LEFT SHOULDER RADIOGRAPHIC SERIES. INDICATIONS: Pain and deformity. Location. COMPARISONS: Compared to the shoulder radiographs of January 07, 2020. FINDINGS: Anterior left shoulder dislocation without convincing fracture. Degenerative disease in the intact left acromioclavicular joint. The partially visualized left clavicle and left scapula appear intact. IMPRESSION: Anterior left shoulder dislocation. Electronically signed by: Jaime Butcher MD 01/16/2020 6:23 PM CDT
[2020-01-16 18:43] VITALS: TEMP 98.7
[2020-01-16] MEDS ORDERED: ETOMIDATE INJECTION 2 MG/ML 20ML VIAL IV ONE ×2 (18:52→19:18)
[2020-01-16] MEDS ORDERED: fentaNYL CITRATE INJ 50 MCG/ML AMP ONE (19:17)
[2020-01-16] MEDS ORDERED: HYDROmorphone HCL INJ 2 MG/ML VIAL IV ONE (19:20)
[2020-01-16] MEDS ORDERED: SODIUM CHLORIDE 0.9% 1000ML 1,000 ML ONE (19:24)
[2020-01-16] MEDS ORDERED: fentaNYL CITRATE INJ 50 MCG/ML AMP IV ONE (19:30)
[2020-01-16] MEDS ORDERED: SODIUM CHLORIDE 0.9% 1000ML 1,000 ML IVS ONE (19:31)
--- NOTE | 2020-01-16 20:17 | RAD ---
EXAM DESCRIPTION: XR Shoulder, Left 2 or More Views CLINICAL HISTORY: Post reduction x-ray TECHNIQUE: Three views of the left shoulder are submitted. COMPARISON: 01/07/2020 and 01/16/2020 at 6:12 PM FINDINGS: Bones: Remote Hill-Sachs fracture deformity again demonstrated. Joints: Interval reduction of the anterior inferior humeral head dislocation. Soft tissues: Unremarkable IMPRESSION: Interval reduction of the humeral head dislocation. Remote Hill-Sachs fracture again demonstrated. Electronically signed by: Jalil Britton MD 01/16/2020 8:16 PM CDT
[2020-01-16 21:04] VITALS: BP 174/111; O2SAT 100
== END 2020-01-16 21:26 | disposition home or self-care (01) ==
LOC: ER 17:51
DX: S43.015A Anterior dislocation of left humerus, initial encounter (principal); I10 Essential (primary) hypertension; F17.200 Nicotine dependence, unspecified, uncomplicated; W17.2XXA Fall into hole, initial encounter; Y92.9 Unspecified place or not applicable
CPT/HCPCS: 23650; 73030; 94770; 96361; 96374; 96375; 99285; J2270; J3010; J3490; J7030